=== PATIENT | female | born 1990 | race Caucasian/White ===

== ENCOUNTER 2016-04-30 11:28 | Emergency (ER) | payer OTHER | END 2016-04-30 12:30 | disposition home or self-care (01) | LOC: FER 11:28 | DX: J40 Bronchitis, not specified as acute or chronic (principal); R51 Headache; J45.909 Unspecified asthma, uncomplicated; F17.210 Nicotine dependence, cigarettes, uncomplicated | CPT/HCPCS: 87450; 87804; 87899 ==

== ENCOUNTER 2021-10-24 06:15 | Inpatient (IN) | payer OTHER ==
[2021-10-24 06:50] LABS: HCT 35.3 % (37.0-47.0); HGB 11.7 g/dl (12.5-16.0); MCH 29.3 pg (25.0-31.0); MCHC 33.1 g/dL (32.0-36.0); MCV 88.5 fL (78.0-100.0); MPV 9.5 fL (6.0-9.5); RBC 3.99 M/uL (4.20-5.40); RDW 16.6 % (11.5-14.0); WBC 10.3 K/uL (4.0-10.5)
[2021-10-24 07:08] LABS: ALBUMIN 2.7 g/dL (3.4-5.0); BILIRUBIN - TOTAL 0.3 mg/dL (0.2-1.0); BUN/CREAT RATIO (CALC) 13.9 RATIO; CREATININE 0.72 mg/dL (0.51-0.95); GLOBULIN (CALCULATION) 4.7 g/dL; TOTAL PROTEIN 7.4 g/dL (6.4-8.2)
[2021-10-24 09:14] LABS: BILIRUBIN NEGATIVE (NEGATIVE); BLOOD NEGATIVE Ery/uL (NEGATIVE); CLARITY CLEAR (CLEAR); COLOR YELLOW (YELLOW); GLUCOSE (U) NORMAL (NORMAL); LEUKOCYTES NEGATIVE Leu/uL (NEGATIVE); NITRITE NEGATIVE (NEGATIVE); PROTEIN NEGATIVE (NEGATIVE)
[2021-10-25 06:52] LABS: HCT 29.3 % (37.0-47.0); HGB 9.8 g/dl (12.5-16.0); MCH 29.8 pg (25.0-31.0); MCHC 33.4 g/dL (32.0-36.0); MCV 89.1 fL (78.0-100.0); MPV 9.3 fL (6.0-9.5); RBC 3.29 M/uL (4.20-5.40); RDW 16.6 % (11.5-14.0); WBC 10.2 K/uL (4.0-10.5)
[2021-10-26 20:22] LABS: HCT 27.1 % (37.0-47.0); HGB 8.8 g/dl (12.5-16.0); MCH 29.5 pg (25.0-31.0); MCHC 32.5 g/dL (32.0-36.0); MCV 90.9 fL (78.0-100.0); MPV 9.6 fL (6.0-9.5); RBC 2.98 M/uL (4.20-5.40); RDW 16.3 % (11.5-14.0); WBC 13.1 K/uL (4.0-10.5)
== END 2021-10-27 15:57 | disposition home or self-care (01) | DRG 784 ==
LOC: FOB 06:15 → UNDOADMIN 06:15 → FOB 10-27 15:57
PROVIDERS: Specialist; ADMIT Obstetrics & Gynecology
PROC: 10D00Z1 Extraction of Products of Conception, Low, Open Approach (ICD-10-PCS; principal; 2021-10-24 08:00)
PROC: 0UT70ZZ Resection of Bilateral Fallopian Tubes, Open Approach (ICD-10-PCS; 2021-10-24 08:00)
DX: O40.3XX0 Polyhydramnios, third trimester, not applicable or unspecified (principal); D62 Acute posthemorrhagic anemia; K56.0 Paralytic ileus; Z37.0 Single live birth; Z3A.38 38 weeks gestation of pregnancy; O34.211 Maternal care for low transverse scar from previous cesarean delivery; O36.63X0 Maternal care for excessive fetal growth, third trimester, not applicable or unspecified; O24.424 Gestational diabetes mellitus in childbirth, insulin controlled; O99.63 Diseases of the digestive system complicating the puerperium; Z20.822 Contact with and (suspected) exposure to COVID-19; O89.4 Spinal and epidural anesthesia-induced headache during the puerperium; O99.02 Anemia complicating childbirth; O99.353 Diseases of the nervous system complicating pregnancy, third trimester; G47.33 Obstructive sleep apnea (adult) (pediatric); O99.52 Diseases of the respiratory system complicating childbirth; J45.909 Unspecified asthma, uncomplicated; O99.214 Obesity complicating childbirth; O69.81X0 Labor and delivery complicated by cord around neck, without compression, not applicable or unspecified; O99.334 Smoking (tobacco) complicating childbirth; F17.210 Nicotine dependence, cigarettes, uncomplicated; Z67.41 Type O blood, Rh negative; Z79.899 Other long term (current) drug therapy
CPT/HCPCS: 36415; 80053; 81001; 82947; 86850; 86900; 86901; J0456; J0690; J1170; J1200; J1650; J1885; J2250; J2274; J2405; J2704; J2916; J3010; J7050; J7120